=== PATIENT | female | born 1980 | race Caucasian/White ===

== ENCOUNTER 2022-03-12 17:34 | Emergency (ER) | payer OTHER, SELFPAY ==
[2022-03-12 17:49] VITALS: BP 154/86; PULSE 61; RESP 22; TEMP 36.3; O2SAT 100; BMI 50.4
--- NOTE | 2022-03-12 18:08 | ED.GENADULT ---
HPI - General Adult General Time Seen by Provider: 18:09 Date Seen: 03/12/22 Chief complaint: Headache/Migraine Stated complaint: Severe Migraine with Vomiting Time Seen by Provider: 03/12/22 17:54 Source: patient and RN notes reviewed Mode of arrival: ambulatory Limitations: no limitations History of Present Illness HPI narrative: Ada is a 41-year-old female coming in with a migraine headache that is been present for 14 hours. She has not really been able to eat or drink, is having ongoing nausea vomiting. The headache is severe, did not respond Excedrin. It is in the left side of her head. She is photophobic and phonophobic. Right now both of her arms are feeling numb and tingly but she is rapidly breathing, hanging onto emesis bag and dry heaving. Arms and legs have been working normally. This headache is not having any different features other than being a bad migraine headache for her. No fevers or chills, no recent illness. In review of her other records, looks like she was in with a migraine on 09/13/2016. Did get IV fluids, Reglan, Benadryl and Toradol, ended up with some IV Ativan as well. MD complaint: Migraine headache Related Data Home Medications Medication Instructions Recorded Confirmed No Known Home Medications 03/12/22 03/12/22 Allergies Allergy/AdvReac Type Severity Reaction Status Date / Time No Known Drug Allergies Allergy Verified 03/12/22 17:53 Review of Systems Status of ROS: Reports: 6 or more systems reviewed and unremarkable except as noted in History and below Exam Const: Vital Signs, click to edit/add: Vital Signs - 24 hr 03/12/22 17:49 03/12/22 18:35 Temperature 97.3 F L Pulse Rate [Right Pulse Oximeter] 61 51 L Respiratory Rate 22 20 Blood Pressure [Le ft Upper Arm] 154/86 H 178/94 H Pulse Oximetry 100 100 Oxygen Delivery Me thod Room Air Documenting provider has reviewed patient's vital signs: yes Common normals: oriented x3, no limitations, alert and well nourished General appearance: cooperative and in distress (Moaning, laying on her right side in the ED bed, hanging onto her head) moderate Nutritional appearance: obese HENMT: Common normals: normocephalic, head/scalp atraumatic, hearing grossly normal bilaterally, external nose normal and nasal mucous membranes and turbinates normal Head and scalp: normocephalic and atraumatic Nose: external nose normal and nasal mucous membranes and turbinates normal Other: Oral mucosa is dry but without concerning changes. Speech is normal. Symmetrical facial function. When I take off her sunglasses she squints her eyes closed, states that she cannot open them because of the light. Neck & C-Spine: Common normals: full ROM, no lymphadenopathy and supple Resp: Common normals: normal respiratory effort, no retractions, no use of accessory muscles and clear to auscultation bilaterally Auscultation: clear to auscultation bilaterally Cardio: Common normals: regular rate, regular rhythm, S1 normal heart sound, S2 normal heart sound, no gallops, no clicks and no murmurs Rate: regular rate Rhythm: regular rhythm Heart sounds: S1 normal and S2 normal GI: Other: Abdomen is obese but soft, nontender. Extremity: Common normals: no calf tenderness and no pedal edema Neuro: Common normals: oriented x3, moves all extremities, no focal motor deficits, no sensory deficits noted and gait normal Sensorium/orientation: alert Speech: speech normal Course Course Hospital Course: We will stab lotion IV, give her L of normal saline, 4 mg IV Zofran and start with 10 mg IV Reglan IV piggyback and 25 mg IV Benadryl. Reevaluation(s) Reevaluation #1: Nursing staff reported that patient was improved, 6/10. That did wake up from sleep. Will give Toradol 15 mg IV. Will plan on discharge to home after that to have her rest. Vital Signs Vital signs: Initial Vital Signs Temperature 97.3 F L 03/12/22 17:49 Temperature Source Temporal Artery Scan 03/12/22 17:49 Pulse Rate 61 03/12/22 17:49 Respiratory Rate 22 03/12/22 17:49 Blood Pressure 154/86 H 03/12/22 17:49 Blood Pressure Mean 108 03/12/22 17:49 Blood Pressure Position Sitting 03/12/22 17:49 Pulse Oximetry 100 03/12/22 17:49 Vital Signs Temperature 97.3 F L 03/12/22 17:49 Pulse Rate 61 03/12/22 17:49 Respiratory Rate 22 03/12/22 17:49 Blood Pressure 154/86 H 03/12/22 17:49 Pulse Oximetry 100 03/12/22 17:49 Temperature 97.3 F L 03/12/22 17:49 Pulse Rate 51 L 03/12/22 18:35 Respiratory Rate 20 03/12/22 18:35 Blood Pressure 178/94 H 03/12/22 18:35 Pulse Oximetry 100 03/12/22 18:35 Oxygen Delivery Method 03/12/22 18:35 Critical Care Time Critical Care Time Critical Care Time: No Discharge Plan Discharge Clinical Impression: Migraine Patient Disposition: Home, Self-Care Condition: Stable Instructions: Migraine Headache (ED) Additional Instructions: Go home and rest, stay hydrated and drink plenty of fluids. For any residual headache, try your usual medications. Do recommend Tylenol 1000 mg up to 3 times a day for any ongoing baseline headache. Can use your supplemental Excedrin or other migraine remedies that you normally would. If your migraine headaches are becoming more problematic, please make a clinic followup with your primary care provider to discuss this. Activity Level: No Restrictions and Activity as Tolerated Discharge Diet: Regular Prescriptions: No Action No Known Home Medications Stand Alone Forms: [employer] Info Instructions
[2022-03-12] MEDS: ONDANSETRON 2 MG/ML inj 4 MG IVP (18:22)
[2022-03-12] MEDS: 0.9 % SODIUM CHLORIDE 1000 ml 1,000 ML IV (18:22)
[2022-03-12] MEDS: diphenhydrAMINE 50 MG/ML inj 25 MG IVP (18:28)
[2022-03-12] MEDS: METOCLOPRAMIDE HCL 10 MG in 0.9 % SODIUM CHLORIDE 100 ml 100 ML 306 MG IVPB (18:29)
[2022-03-12 18:35] VITALS: BP 178/94; PULSE 51; RESP 20; O2SAT 100
--- NOTE | 2022-03-12 18:42 | ED.NURSE ---
updated Pt HR sometimes to 40's. Is on panel monitor
[2022-03-12 19:00] VITALS: BP 176/88; PULSE 50; RESP 16; O2SAT 100
[2022-03-12 19:30] VITALS: BP 168/95; PULSE 67; RESP 16; O2SAT 97
[2022-03-12 20:00] VITALS: BP 164/95; PULSE 67; RESP 16; O2SAT 98
[2022-03-12] MEDS: KETOROLAC 15 MG/ML inj IVP (20:09)
[2022-03-12 20:26] VITALS: BP 154/74; PULSE 59; RESP 18; TEMP 36.7
== END 2022-03-12 20:26 | disposition home or self-care (01) ==
PROVIDERS: Emergency Provider Family Medicine; PCP Internal Medicine
DX: G43.909 Migraine, unspecified, not intractable, without status migrainosus (principal)
CPT/HCPCS: 96361; 96374; 96375; 99283; 99284; J1200; J1885; J2405; J2765; J7030

== ENCOUNTER 2022-03-14 08:43 | Outpatient (CLI) | payer OTHER, SELFPAY ==
[2022-03-14 14:14] LABS: Chloride* 107 mmol/L (96-114); Potassium* 4.7 mmol/L (3.6-5.1); Sodium* 141 mmol/L (135-149)
[2022-03-14 14:17] LABS: Blood Urea Nitrogen* 13 mg/dL (5-24); Calcium* 9.3 mg/dL (8.4-10.6); Carbon Dioxide* 19 mmol/L (20-32); Creatinine* 0.6 mg/dL (0.5-1.5); Estimated Glomerular Filt Rate 117 ml/min
[2022-03-14 15:17] LABS: Glucose* 95 mg/dL (60-115)
== END 2022-03-14 08:44 | disposition home or self-care (01) ==
PROVIDERS: PCP Internal Medicine; Visit Provider Physician Assistant Medical
DX: G43.909 Migraine, unspecified, not intractable, without status migrainosus (principal); I10 Essential (primary) hypertension
CPT/HCPCS: 80048; 84443

== ENCOUNTER 2022-03-26 08:56 | Outpatient (CLI) | payer OTHER, SELFPAY ==
--- NOTE | 2022-03-26 09:15 | CRLHL7_ITS ---
For Patients: As a result of the Century Cures Act, medical imaging exams and procedure reports are released immediately into your electronic medical record. You may view this report before your referring provider. If you have questions, please contact your health care provider. Indication: Headaches. Technique: Noncontrast sagittal T1, axial FLAIR, T2, diffusion weighted sequences are provided. No comparisons. Findings: The ventricles, sulci and gyri are normal size, shape and contour for age. The midline structures are centrally located with no evidence of shift. There are no suspicious intra or extra-axial fluid collections. No region of restricted diffusion. Expected flow voids in the cavernous carotids and basilar artery. Impression: 1. No radiographic evidence of acute intracranial abnormalities. Dictated by Omid Wood MD @ 03/26/2022 10:33:39 AM (Electronically Signed)
== END 2022-03-26 08:57 | disposition home or self-care (01) ==
LOC: MRI 08:56
PROVIDERS: PCP Internal Medicine; Visit Provider Physician Assistant Medical
DX: G43.909 Migraine, unspecified, not intractable, without status migrainosus (principal)
CPT/HCPCS: 70551

== ENCOUNTER 2022-07-24 20:31 | Outpatient (CLI) | payer OTHER, SELFPAY ==
--- NOTE | 2022-07-31 12:38 | W.PM.SLEEP ---
Sleep Study Details Details Interpreting Provider: Melvin Guerrero MD Date of Sleep Study: 07/24/22 Sleep Study Details: STUDY TYPE:? Hospital ? BMI:? 48.7 ORDERING PROVIDER:? Paramjit INDICATION:? Concerns about sleep apnea ? SLEEP SUMMARY:? 418.5 total sleep minutes, efficiency 92.8, arousal index 7.9 RESPIRATORY SUMMARY:? Mean oxygen awake 97, asleep 95, low oxygen 84, 1.3 minutes oxygen between 80 and 88% AHI 3.4, RDI 7.9 Supine AHI 4.3 supine REM AHI 12.9 Nonsupine AHI 1.6 nonsupine REM AHI 4.6 PERIODIC LIMB MOVEMENTS OF SLEEP:? None CARDIAC:? Awake 61, asleep 51. No arrhythmias noted IMPRESSION:? The overall AHI is within normal limits at 3.4 however the RDI is elevated at 7.9. Patient was somewhat worse in supine REM sleep. RECOMMENDATION: If the patient is symptomatic would be reasonable to consider a trial of AutoSet CPAP at 4-17. Weight loss is clearly recommended.
== END 2022-07-24 20:32 | disposition home or self-care (01) ==
PROVIDERS: PCP Physician Assistant Medical; Visit Provider Physician Assistant Medical
DX: G47.33 Obstructive sleep apnea (adult) (pediatric) (principal)
CPT/HCPCS: 95810

== ENCOUNTER 2022-07-25 10:02 | Outpatient (CLI) | payer OTHER, SELFPAY | END 2022-07-25 10:03 | disposition home or self-care (01) | PROVIDERS: PCP Physician Assistant Medical; Visit Provider Physician Assistant Medical | DX: I10 Essential (primary) hypertension (principal); Z13.6 Encounter for screening for cardiovascular disorders | CPT/HCPCS: 80053; 80061 ==

== ENCOUNTER 2022-08-22 15:39 | Outpatient (CLI) | payer OTHER, SELFPAY ==
--- NOTE | 2022-08-22 16:00 | CRLHL7_ITS ---
For Patients: As a result of the Century Cures Act, medical imaging exams and procedure reports are released immediately into your electronic medical record. You may view this report before your referring provider. If you have questions, please contact your health care provider. INDICATION: Chronic sinusitis. TECHNIQUE: Noncontrast CT images acquired through the paranasal sinuses. COMPARISON: None. FINDINGS: No air-fluid levels to suggest acute sinusitis. Small retention cyst or polyp along the floor of the left maxillary antrum. The left ethmoid infundibulum is widely patent. Minimal mucosal thickening in the right maxillary sinus. The right ethmoid infundibulum is widely patent. Minimal mucosal thickening in the left frontal recess. The frontal sinuses are otherwise clear. Mild mucosal thickening in the ethmoid air cells. The sphenoid sinuses and sphenoethmoidal recesses are clear. Slight 1-2 mm rightward nasal septal deviation. No nasal cavity masses. The mastoid air cells are clear. IMPRESSION: 1. Mild paranasal sinus mucosal disease. No air-fluid levels to suggest acute sinusitis. 2. Small left maxillary sinus retention cyst or polyp. 3. Slight rightward nasal septal deviation. Please note that all CT scans at this facility use dose modulation, iterative reconstruction, and/or weight-based dosing when appropriate to reduce radiation dose to as low as reasonably achievable. Dictated by Nelson Cates MD @ 08/22/2022 4:31:06 PM (Electronically Signed)
== END 2022-08-22 15:40 | disposition home or self-care (01) ==
LOC: CT 15:40
PROVIDERS: PCP Physician Assistant Medical; Visit Provider Otolaryngology
DX: J32.9 Chronic sinusitis, unspecified (principal); J32.0 Chronic maxillary sinusitis; J34.2 Deviated nasal septum
CPT/HCPCS: 70486

== ENCOUNTER 2022-11-16 11:47 | Day surgery (SDC) | payer OTHER, SELFPAY ==
[2022-11-16] VITALS (18 sets, daily range): BP systolic 100–138; BP diastolic 47–82; PULSE 54–70; RESP 16–22; TEMP 36.1–36.9; O2SAT 95–99; BMI 41.4
[2022-11-16 12:18] LABS: HCG Qualitative Serum* Negative (Negative)
[2022-11-16] MEDS: OXYMETAZOLINE 0.05% NASAL SPRAY 2 SPRAY NOSTRIL-B (12:30)
[2022-11-16] MEDS: SODIUM CHLORIDE 0.9 % (FLUSH) 10 ML SYRINGE IVF (12:30)
[2022-11-16] MEDS: LACTATED RINGERS 1000 ML 1,000 ML 35 ML IV (12:30)
--- NOTE | 2022-11-16 12:37 | SUR.OPER ---
PATIENT QUESTIONS ANSWERED SATISFACTORILY PREOPERATIVELY. PATIENT BROUGHT TO OR #1 PER CART. Patient positioned supine on OR #1 bed. Perioperative team tucked arms bilaterally at patient side with drawsheet. Final approval of positioning by surgeon.
[2022-11-16] MEDS: COCAINE HCL 4 % 4 ML SOLUTION NOSTRIL-B (13:03)
[2022-11-16] MEDS: BUPIVACAINE 0.5%/EPINEPHRINE 0.9 MG (30.9 ML) INJECTION (13:05)
--- NOTE | 2022-11-16 13:14 | W.ANESCHARGE ---
Anesthesia Charges Start Date/Time Anesthesia Start Date: 11/16/22 Anesthesia Start Time: 12:51 Stop Date/Time Anesthesia Stop Date: 11/16/22 Anesthesia Stop Time: 13:32
[2022-11-16] MEDS: MUPIROCIN 1 GM PACKET 1 APPLIC TOPICAL (13:17)
--- NOTE | 2022-11-16 13:21 | SUR.OPER ---
SURGEON DECLINES OFFER TO SEND EXCISED TISSUES TO PATHOLOGY.
--- NOTE | 2022-11-16 13:45 | W.PM.ENTPROC ---
Procedure Note Date of procedure: 11/16/22 Procedure: Preop diagnosis nasal obstruction bilateral inferior and middle turbinate hypertrophy deviated septum, nasal headaches Postoperative diagnosis same Procedure nasal septoplasty, submucous partial resection inferior turbinates and narrowing of middle turbinates Under general trach anesthesia patient was prepped draped usual fashion the nose injected and decongested. A right hemitransfixion incision was made. Left anterior and posterior tunnels were created. A vertical incision was made through the cartilage and a right posterior tunnel created. The posterior right were deflected septal bone was resected by cutting above and below with angled scissors. This piece of bone was trimmed and returned to intraseptal space. The septum was now midline and the hemitransfixion was closed with 2 4-0 chromic sutures. A stab incision was made in the anterior head of the right inferior turbinate a tunnel created with a Jessica dissector. Conservative anterior submucous resection was performed. The Coblation was then used to cauterize intramurally along the inferior 10%. This was repeated on the left side in identical fashion. Both middle turbinates were simply crushed with the [place] forceps. Silastic stents were secured on either side the septum with 3-0 nylon. Merocel packing was placed beneath the middle turbinates on each side. The patient procedure well was taken recovery in satisfactory condition. Blood loss during procedure less than 20 mL. Surgeon: Melvin Guerrero MD
[2022-11-16] MEDS: fentaNYL 100 MCG/2 ML inj 50 MCG IVP (13:50)
[2022-11-16] MEDS: OXYCODONE 5 MG TABLET PO ×2 (15:42→19:40)
[2022-11-16] MEDS: ACETAMINOPHEN 325 MG TABLET PO ×2 (15:43→19:41)
--- NOTE | 2022-11-16 19:36 | PC.NURSE ---
Shift Note: VS WNL, SpO2 97% or greater on RA. Initially rating sinus pain 5/10 but is now c/o of increasing pain pressure around forehead and temples 8/10. PRN Oxy and Tylenol given as well as a cup of coffee for caffeine content. Message left for [place] and orders for Vistaril and Imitrex obtained from hospitalist. PO intake is good and pt ambulating to BR with SBA. Mild dizziness with position change, resolves with moving slowly and pausing between sitting and standing. BP's low 100's systolically. Dressing to nares saturated with moderate amount bloody discharge and was changed at 1700.
[2022-11-16] MEDS: lamoTRIgine 25 MG TABLET 75 MG PO (20:19)
[2022-11-16] MEDS: TOPIRAMATE 50 MG TABLET 150 MG PO (20:19)
[2022-11-16] MEDS: hydrOXYzine pamoate 25 MG CAPSULE PO (20:19)
[2022-11-16] MEDS: SUMAtriptan 6 MG/0.5 ML INJ SUBCUT (20:32)
[2022-11-16] MEDS: TRAZODONE HCL 50 MG TABLET 100 MG PO (22:01)
[2022-11-17] MEDS: ACETAMINOPHEN 325 MG TABLET PO ×2 (00:46→09:07)
[2022-11-17] MEDS: OXYCODONE 5 MG TABLET PO ×3 (00:46→09:07)
[2022-11-17 02:41] VITALS: O2SAT 95
[2022-11-17] MEDS: hydrOXYzine pamoate 25 MG CAPSULE PO (04:50)
[2022-11-17 05:08] VITALS: BP 138/80; PULSE 64; RESP 18; TEMP 36.4; O2SAT 98
--- NOTE | 2022-11-17 06:26 | PC.NURSE ---
19-07: pleasant and cooperative. Upon initial assessment pt was tearful and c/o about her migraine, fresh ice packs given, prn medication given, offered relief. Changed dressing x 1, small amount of blood on gauze pad. Q tips provided to clean out nares with normal saline. VSS.
[2022-11-17 07:00] VITALS: PULSE 64; RESP 20; O2SAT 94
[2022-11-17] MEDS: IBUPROFEN 200 MG TABLET PO (07:35)
--- NOTE | 2022-11-17 10:59 | PC.NURSE ---
Pt friendly and cooperative this morning. States her headache has improved quite a bit since last night, rating frontal forehead pain 3/10. Nasal drainage markedly decreased with scant collection on nasal dressing. Pt intermittently utilizing saline spray and gentle cleansing with q-tip just around inside of nares. Tolerating regular diet without difficulty. VS WNL and LS COA, SpO2 well above 90% on RA. Sister Brett at bedside for discharge instructions. Both pt and her sister verbalized understanding of instructions and follow-up. Pt was discharged ambulatory in the care of her sister at 1015.
== END 2022-11-17 10:15 | disposition home or self-care (01) ==
LOC: OR 12:07 → MEDSURG 14:32
PROVIDERS: PCP Physician Assistant Medical; Visit Provider Otolaryngology
PROC: (CPT 30520; principal; 2022-11-16 13:00)
DX: J34.2 Deviated nasal septum (principal); J34.3 Hypertrophy of nasal turbinates; R51.9 Headache, unspecified; J34.89 Other specified disorders of nose and nasal sinuses
CPT/HCPCS: 30520; 30140; 00160; 36415; 84703; A9270; J2250; J3010; J3030; J7120

== ENCOUNTER 2023-10-03 08:38 | Outpatient (CLI) | payer OTHER, SELFPAY | END 2023-10-03 08:39 | disposition home or self-care (01) | LOC: NFLDREF 10-21 00:26 | PROVIDERS: PCP Physician Assistant Medical; Referring Provider Physician Assistant Medical; Visit Provider Physician Assistant Medical | DX: I10 Essential (primary) hypertension (principal); F51.01 Primary insomnia; Z13.220 Encounter for screening for lipoid disorders; Z13.29 Encounter for screening for other suspected endocrine disorder | CPT/HCPCS: 80053; 80061; 84443 ==